=== PATIENT | female | born 1960 | race Caucasian/White ===

== ENCOUNTER 2018-04-21 16:47 | Emergency (ER) | payer SELFPAY | END 2018-04-21 18:45 | disposition home or self-care (01) | LOC: E/R 18:45 | DX: S62.366A Nondisplaced fracture of neck of fifth metacarpal bone, right hand, initial encounter for closed fracture (principal); W23.1XXA Caught, crushed, jammed, or pinched between stationary objects, initial encounter; Y92.89 Other specified places as the place of occurrence of the external cause | CPT/HCPCS: 29125; 73140; 99283-25 ==